=== PATIENT | male | born 1960 | race Caucasian/White ===

== ENCOUNTER 2019-06-26 18:39 | Inpatient (IN) | payer MEDICARE, MEDICAID ==
[~2019-06-26] VITALS: Ht 180.3 cm; Wt 156.0 kg
[2019-06-26] MEDS ORDERED: ALBUTEROL/IPRATROPIUM 2.5MG/0.5MG, 3 ML NPPB ONE (19:30)
[2019-06-26] MEDS ORDERED: ALBUTEROL SULFATE 2.5 MG/3 ML NPPB ONE ×2 (19:30→21:00)
[2019-06-26 19:44] LABS: BASOPHILS # (AUTO) 0.02 x10^3/uL (0-0.1); BASOPHILS % (AUTO) 0 % (0-1); EOSINOPHILS # (AUTO) 0.01 x10^3/uL (0-0.4); EOSINOPHILS % (AUTO) 0 % (1-7); LYMPHOCYTES # (AUTO) 0.76 x10^3/uL (1-3.4); LYMPHOCYTES % (AUTO) 15 % (22-44); MD NO; MEAN CORPUSCULAR HEMOGLOBIN 29.9 pg (27.5-34.5); MEAN CORPUSCULAR VOLUME 90.6 fL (81-97); MEAN PLATELET VOLUME 10.3 fL (7.4-10.4); MONOCYTES % (AUTO) 14 % (2-9); NEUTROPHILS # (AUTO) 3.45 x10^3/uL (1.8-6.8); NEUTROPHILS % (AUTO) 70 % (42-75); PLATELET COUNT 182 x10^3/uL (130-400); RED BLOOD COUNT 4.92 x10^6/uL (4.38-5.82); RED CELL DISTRIBUTION WIDTH 15.5 % (9.4-14.8)
[2019-06-26] MEDS ORDERED: ALBUTEROL/IPRATROPIUM 2.5MG/0.5MG, 3 ML ONE (19:49)
[2019-06-26 19:55] LABS: ALBUMIN 2.2 g/dL (3.4-5.0); ANION GAP 6 mmol/L (5-15); CALCIUM 8.3 mg/dL (8.5-10.1); CHLORIDE 108 mmol/L (98-107); CREATININE 1.55 mg/dL (0.7-1.3)
[2019-06-26] MEDS ORDERED: ALBUTEROL SULFATE 2.5 MG/3 ML ONE (19:55)
[2019-06-26] MEDS: PLEASE ENTER ALLERGIES MC SCH ×2 (20:00→22:06)
--- NOTE | 2019-06-26 20:47 | NUR ---
PT SPO2 86-88% ON RA. PLACED ON 2L O2 NC. PT NOW 95-97%. DENIES ANY PAIN. TACHY AT 117. CALL LIGHT IN REACH.
[2019-06-26] MEDS ORDERED: CEFTRIAXONE PMX 1GM/50ML 50 ML IV ONE (21:00)
[2019-06-26] MEDS ORDERED: methylPREDNISolone SOD SUCC 125 MG/2 ML IVPush SCH (21:00)
[2019-06-26] MEDS ORDERED: AZITHROMYCIN 500 MG in SODIUM CHLORIDE 0.9% 250 ML IV ONE (21:00)
[2019-06-26] MEDS ORDERED: AZITHROMYCIN 500 MG in SODIUM CHLORIDE 0.9% 250 ML IV SCH (21:30)
[2019-06-26] MEDS ORDERED: ACETAMINOPHEN 325 MG TABLET PO PRN (21:30)
[2019-06-26] MEDS: FUROSEMIDE 40 MG/4 ML IV SCH (21:30)
[2019-06-26] MEDS ORDERED: BISACODYL 10 MG SUPP PR PRN (21:30)
[2019-06-26] MEDS ORDERED: POLYETHYLENE GLYCOL 17 GM PACKET PO PRN (21:30)
[2019-06-26] MEDS ORDERED: ONDANSETRON ODT 4 MG PO PRN (21:30)
[2019-06-26] MEDS: SODIUM CHLORIDE FLUSH 10ML SYR IVF SCH (21:30)
--- NOTE | 2019-06-26 21:59 | NUR ---
REPORT TO DOM OLEARY RN. PT PROVIDED WITH MEAL FROM [employer]. UPDATED ON PLAN OF CARE, DENIES ANY NEEDS OR CONCERNS AT THIS TIME. CALL LIGHT IN REACH.
[2019-06-26] MEDS ORDERED: FUROSEMIDE 40 MG/4 ML ONE (22:02)
[2019-06-26] MEDS ORDERED: CEFTRIAXONE PMX 1GM/50ML 50 ML ONE (22:02)
[2019-06-26 22:39] VITALS: BP 103/73
[2019-06-26] MEDS: HEPARIN 5,000 UNITS/ML, 1ML SQ SCH (23:04)
[2019-06-27 00:47] VITALS: BP 125/80
[2019-06-27] MEDS ORDERED: ALBUTEROL SULFATE 2.5 MG/3 ML NPPB PRN (01:00)
[2019-06-27 02:58] LABS: RAPID INFLUENZA A POSITIVE (Negative); RAPID INFLUENZA B Negative (Negative)
[2019-06-27 05:40] LABS: BASOPHILS # (AUTO) 0.02 x10^3/uL (0-0.1); BASOPHILS % (AUTO) 0 % (0-1); EOSINOPHILS % (AUTO) 0 % (1-7); LYMPHOCYTES # (AUTO) 0.92 x10^3/uL (1-3.4); LYMPHOCYTES % (AUTO) 16 % (22-44); MD NO; MEAN CORPUSCULAR HEMOGLOBIN 29.9 pg (27.5-34.5); MEAN CORPUSCULAR HGB CONC 32.8 g/dL (33.2-36.2); MEAN CORPUSCULAR VOLUME 91.1 fL (81-97); MEAN PLATELET VOLUME 10.4 fL (7.4-10.4); MONOCYTES # (AUTO) 0.81 x10^3/uL (0.2-0.8); MONOCYTES % (AUTO) 14 % (2-9); NEUTROPHILS # (AUTO) 4.08 x10^3/uL (1.8-6.8); NEUTROPHILS % (AUTO) 70 % (42-75); PLATELET COUNT 179 x10^3/uL (130-400); RED BLOOD COUNT 4.88 x10^6/uL (4.38-5.82); RED CELL DISTRIBUTION WIDTH 15.2 % (9.4-14.8)
[2019-06-27 06:07] LABS: ALANINE AMINOTRANSFERASE 19 U/L (12-78); ALBUMIN 2.3 g/dL (3.4-5.0); ANION GAP 8 mmol/L (5-15); CALCIUM 8.1 mg/dL (8.5-10.1); CHLORIDE 107 mmol/L (98-107); CREATININE 1.58 mg/dL (0.7-1.3)
[2019-06-27 06:10] LABS: ALKALINE PHOSPHATASE 77 U/L (45-117); BILIRUBIN,TOTAL 0.3 mg/dL (0.2-1.0); TOTAL PROTEIN 6.5 g/dL (6.4-8.2)
[2019-06-27] MEDS: HEPARIN 5,000 UNITS/ML, 1ML SQ SCH (08:24)
[2019-06-27 08:30] VITALS: BP 160/102
[2019-06-27] MEDS: FUROSEMIDE 40 MG/4 ML IV SCH (08:54)
[2019-06-27] MEDS: SODIUM CHLORIDE FLUSH 10ML SYR IVF SCH (08:55)
[2019-06-27] MEDS ORDERED: SENNA/DOCUSATE TABLET PO SCH (09:00)
[2019-06-27] MEDS ORDERED: OSELTAMIVIR 75 MG CAPSULE PO SCH (09:00)
[2019-06-27] MEDS ORDERED: EMPA10TA PO (11:51)
[2019-06-27] MEDS ORDERED: INSU100I18 SQ-INSULIN (11:51)
[2019-06-27] MEDS ORDERED: INSU100I13 SQ (11:51)
[2019-06-27] MEDS ORDERED: LEVO200V10 PO (11:51)
[2019-06-27] MEDS ORDERED: LIRA0.6P2 SQ-INSULIN (11:51)
[2019-06-27] MEDS ORDERED: ENAL20TA PO (11:51)
[2019-06-27] MEDS ORDERED: METF10007 PO (11:51)
[2019-06-27] MEDS ORDERED: ALPR1TAB2 PO (11:51)
[2019-06-27] MEDS ORDERED: CEFTRIAXONE PMX 1GM/50ML 50 ML IV SCH (22:00)
== END 2019-06-27 11:40 | disposition left against medical advice (07) | DRG 291 ==
LOC: ED 21:25 → EDIP 22:15 → 4EST 22:51 → 4WST 06-27 06:02
PROVIDERS: ADMIT Internal Medicine; ATTEND Internal Medicine
DX: I50.9 Heart failure, unspecified (principal); J10.00 Influenza due to other identified influenza virus with unspecified type of pneumonia; Z68.42 Body mass index [BMI] 45.0-49.9, adult; E66.01 Morbid (severe) obesity due to excess calories; E11.9 Type 2 diabetes mellitus without complications; E03.9 Hypothyroidism, unspecified; R06.00 Dyspnea, unspecified; Z66 Do not resuscitate; R06.89 Other abnormalities of breathing; R09.02 Hypoxemia; R06.01 Orthopnea; Z82.49 Family history of ischemic heart disease and other diseases of the circulatory system; Z83.3 Family history of diabetes mellitus; J98.01 Acute bronchospasm; Z87.891 Personal history of nicotine dependence; Z79.4 Long term (current) use of insulin; Z81.1 Family history of alcohol abuse and dependence
CPT/HCPCS: 36415; 71045; 80048; 80053; 82040; 82962; 83036; 83880; 84145; 85025; 87040; 87400; 93005; 94640; 99291; G0378; J0456; J0696; J1644; J1940; J7620; J7050